=== PATIENT | male | born 1995 | race Caucasian/White ===

== ENCOUNTER 2024-01-01 15:42 | Day surgery (SDC) | payer BC ==
[2024-01-01] MEDS ORDERED: LIDOCAINE HCL 2% 100 MG/5 ML IJ ONE (15:43)
[2024-01-01] MEDS ORDERED: Depo-Medrol 40 MG/ML IM ONE (15:43)
[2024-01-01] MEDS ORDERED: DIPRIVAN 200 MG/20 ML IV ONE ×2 (17:06→17:17)
[2024-01-01] MEDS ORDERED: Versed 2 MG/2 ML Injection ONE (17:07)
[2024-01-01] MEDS ORDERED: Lactated Ringers 1,000 ML IV ONE (18:01)
--- NOTE | 2024-01-01 19:07 | XRAY ---
Indication: Bilateral L3-L5 MBB. Intraoperative fluoroscopy provided for 29 seconds. 2 digital spot images submitted for interpretation demonstrates posterior needle tips projecting over the expected left and right L3-L5 nerve roots. Correlate with intraoperative findings/report.
--- NOTE | 2024-01-02 08:40 | XRAY ---
29 seconds of fluoroscopy was used in surgery for a bilateral L3-L5 MBB.
== END 2024-01-01 17:38 | disposition home or self-care (01) ==
LOC: SDC-PAIN 15:42
PROVIDERS: ATTEND Psychiatry & Neurology Pain Medicine
DX: M47.816 Spondylosis without myelopathy or radiculopathy, lumbar region (principal)
CPT/HCPCS: 64493; 64494; 72020; 77002; J1030; J2250; J2704

== ENCOUNTER 2024-03-18 14:45 | Day surgery (SDC) | payer BC ==
[2024-03-18] MEDS ORDERED: XYLOCAINE-MPF 1% 5ML SDV IJ ONE (14:46)
[2024-03-18] MEDS ORDERED: Depo-Medrol 40 MG/ML IM ONE (14:46)
[2024-03-18] MEDS ORDERED: BUPIVACAINE 0.5% VIAL IJ ONE (14:46)
[2024-03-18] MEDS ORDERED: Lactated Ringers 1,000 ML IV ONE (16:17)
[2024-03-18] MEDS ORDERED: DIPRIVAN 200 MG/20 ML IV ONE ×2 (16:42)
--- NOTE | 2024-03-18 20:06 | XRAY ---
Indication: Right L3-L5 RFA. Intraoperative fluoroscopy provided for 42 seconds. 5 digital spot images submitted for interpretation demonstrates posterior needle tips projecting over the expected right L3-L5 nerve roots. Correlate with intraoperative findings/report.
--- NOTE | 2024-03-19 09:18 | XRAY ---
42 seconds of fluoroscopy was used in surgery for a right L3-L5 RFA.
== END 2024-03-18 17:13 | disposition home or self-care (01) ==
LOC: SDC-PAIN 14:45
PROVIDERS: ATTEND Psychiatry & Neurology Pain Medicine
DX: M47.816 Spondylosis without myelopathy or radiculopathy, lumbar region (principal)
CPT/HCPCS: 64635; 64636; 72100; 77002; J1010; J2704